=== PATIENT | male | born 1955 | race Caucasian/White ===

== ENCOUNTER → 2021-08-28 11:33 | Outpatient (CLI) | payer MEDICARE, OTHER, SELFPAY ==
[2021-08-28 18:28] LABS: Add Manual Diff / Slide Review NO; Basophils Absolute Auto 0 /uL (0-100); Basophils Percent Auto 0.4 % (0-2); Eosinophils Absolute Auto 100 /uL (0-450); Eosinophils Percent Auto 1.6 % (2-4); Hematocrit 43.3 % (41-53); Hemoglobin 15.5 g/dL (13.5-17.5); Lymphocytes Absolute Auto 1900 /uL (1100-4500); Lymphocytes Percent Auto 31.7 % (25-40); Mean Corpuscular HGB Conc 35.8 % (30-36); Mean Corpuscular Hemoglobin 35.2 PG (26-34); Mean Corpuscular Volume 98.2 fL (80-100); Monocytes Absolute Auto 400 /uL (0-900); Monocytes Percent Auto 5.9 % (3-14); Neutrophils Absolute Auto 3600 /uL (1500-7000); Neutrophils Percent Auto 60.4 % (50-75); Platelet Count 162 X10^3/uL (150-400); Red Cell Distribution Width 12.9 % (11.6-14.8)
[2021-08-28 18:37] LABS: Alanine Aminotransferase 30 IU/L (<50); Albumin 4.5 g/dL (3.5-5.0); Albumin Globulin Ratio 1.7 (1.0-2.8); Alkaline Phosphatase 87 U/L (38-126); Aspartate Aminotransferase 31 IU/L (17-59); BUN Creatinine Ratio 18.1 (6-22); Bilirubin Total 0.7 mg/dL (0.2-1.3); Blood Urea Nitrogen 21 mg/dL (9-20); C-Reactive Protein Quant < 0.5 mg/dL (<1.0); Calcium 9.8 mg/dL (8.4-10.2); Carbon Dioxide 32 mmol/L (22-32); Chloride 104 mmol/L (98-107); Estimated Glomerular Filt Rate > 60.0 mL/min (>60); Globulin 2.7 g/dL (1.7-4.1); Glucose 89 mg/dL (80-110); HEMOLYSIS < 15 (0-50); Sodium 142 mmol/L (137-145); Total Protein 7.2 g/dL (6.3-8.2)
[2021-08-28 18:54] LABS: Erythrocyte Sedimentation Rate 5 MM/HR (0-15)
== END ==
PROVIDERS: Family Provider Family Medicine; PCP Family Medicine; Visit Provider Family Medicine
DX: R07.9 Chest pain, unspecified (principal); M10.9 Gout, unspecified; K21.9 Gastro-esophageal reflux disease without esophagitis
CPT/HCPCS: 80053; 85025; 85651; 86140

== ENCOUNTER → 2021-11-28 11:35 | Outpatient (CLI) | payer MEDICARE, OTHER, SELFPAY ==
[2021-11-28 18:45] LABS: Uric Acid 5.5 mg/dL (3.5-8.5)
== END ==
PROVIDERS: Family Provider Family Medicine; PCP Family Medicine; Visit Provider Physician Assistant
DX: M1A.09X0 Idiopathic chronic gout, multiple sites, without tophus (tophi) (principal)
CPT/HCPCS: 84550

== ENCOUNTER → 2021-12-04 11:00 | Outpatient (CLI) | payer MEDICARE, OTHER, SELFPAY ==
--- NOTE | 2021-12-04 11:03 | DI.MRI.S_ITS ---
PROCEDURE: MR KNEE LT WO CON INDICATIONS: basketball injury, pop/twist Left knee x 2 days ago TECHNIQUE: Noncontrast sagittal PD fast spin echo and T2 fast spin echo with fat saturation, sagittal 3-D FLASH with fat saturation; coronal T1 spin echo and PD fast spin echo with fat saturation, and axial PD fast spin echo with fat saturation through the knee. COMPARISON: None. FINDINGS: Image quality: Excellent. Anterior Cruciate Ligament: There is complete midsubstance tearing of the anterior cruciate ligament. Posterior Cruciate Ligament: Intact. Medial Collateral Ligament: Intact. Lateral Collateral Ligament: Intact. Medial Meniscus: There is mild irregularity of the posterior horn of the medial meniscus that is suspicious for focal complex tearing with a shallow radial component and a suspected horizontal oblique component. Lateral Meniscus: Intact. Medial and Lateral Tendons: The semimembranosus tendon insertions and meniscocapsular junction appear intact. Visualized portions of the pes anserinus tendons appear normal. No abnormal bursal fluid. The long and short heads of the biceps femoris tendon appear intact. The popliteus tendon appears intact. No signs of posterolateral corner injury. Iliotibial band appears normal. Anterior Structures: Mild patella ivelisse. The distal quadriceps tendon is intact. No patellar subluxation. No femoral trochlear dysplasia or ventral trochlear prominence. No edema in the infrapatellar fat pad. Bones: There is mild trabecular bone injury at the far posterior portion of the medial and lateral tibial plateau as well as the weight-bearing portion of the lateral femoral condyle, consistent with a pivot-shift injury mechanism. Medial Femorotibial Cartilage: There is partial-thickness cartilage thinning and surface irregularity involving the central weight-bearing portion of the medial femorotibial compartment. Lateral Femorotibial Cartilage: High-grade or full-thickness cartilage defect is seen at the central to anterior weight-bearing portion of the lateral femoral condyle adjacent to the trabecular bone injury. Patellofemoral Cartilage: High-grade cartilage loss is seen at the medial patellar facet with subchondral cystic changes. Deep cartilage fissuring is seen in the median ridge and lateral facet of the patella. There is moderate to high-grade cartilage loss in the trochlear groove. Soft Tissues: Small joint effusion. Trace medial popliteal cyst. The musculature surrounding the knee is normal in bulk. There is mild thickening of the medial patellar plica. IMPRESSION: 1. Complete midsubstance rupture of the anterior cruciate ligament. 2. Complex tearing of the posterior horn of the medial meniscus with a shallow radial component and probable superimposed horizontal oblique component. 3. Mild impaction trabecular bone injuries at the far posterior portions of the medial and lateral tibial plateau. Mild trabecular bone injury is also seen at the central to anterior weight-bearing portion of the lateral femoral condyle with overlying cartilage irregularity. Findings are consistent with a pivot-shift injury mechanism. 4. 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 5. Mild patella ivelisse. 6. Small joint effusion. Mild thickening of the medial patellar plica. Dictated by: Edward De Santiago M.D. on 12/04/2021 at 14:06 Approved by: Edward De Santiago M.D. on 12/04/2021 at 14:17
== END ==
PROVIDERS: Family Provider Family Medicine; PCP Family Medicine; Referring Provider Family Medicine; Visit Provider Physician Assistant
DX: S83.512A Sprain of anterior cruciate ligament of left knee, initial encounter (principal); S83.232A Complex tear of medial meniscus, current injury, left knee, initial encounter; S89.82XA Other specified injuries of left lower leg, initial encounter; M23.92 Unspecified internal derangement of left knee; M17.12 Unilateral primary osteoarthritis, left knee; M94.262 Chondromalacia, left knee; X50.0XXA Overexertion from strenuous movement or load, initial encounter; Y93.67 Activity, basketball
CPT/HCPCS: 73721

== ENCOUNTER → 2024-05-26 12:01 | Outpatient (CLI) | payer MEDICARE, OTHER, SELFPAY ==
[2024-05-26 19:09] LABS: Erythrocyte Sedimentation Rate 1 MM/HR (0-15)
[2024-05-26 19:14] LABS: C-Reactive Protein Quant < 0.5 mg/dL (<1.0); Rheumatoid Factor < 8.6 IU/mL (<12.0); Uric Acid 6.9 mg/dL (3.5-8.5)
[2024-05-26 19:28] LABS: Vitamin D 25 Hydroxy (D3) 69.5 ng/mL (30.0-100.0)
[2024-05-26 19:42] LABS: Prostate Specific Antigen Scrn 0.269 ng/mL (0.1-4.0)
[2024-05-28 10:10] LABS: CCP Antibodies IgG/IgA 6 units (0-19)
[2024-05-28 18:08] LABS: ANA Screen, IFA Negative (.)
== END ==
PROVIDERS: Family Provider Family Medicine; PCP Family Medicine; Visit Provider Family Medicine
DX: E55.9 Vitamin D deficiency, unspecified (principal); Z12.5 Encounter for screening for malignant neoplasm of prostate; M1A.09X0 Idiopathic chronic gout, multiple sites, without tophus (tophi); M19.049 Primary osteoarthritis, unspecified hand; M25.50 Pain in unspecified joint
CPT/HCPCS: 82306; 84550; 85651; 86038; 86140; 86200; 86430; G0103

== ENCOUNTER → 2024-06-21 11:16 | Outpatient (CLI) | payer MEDICARE, OTHER, SELFPAY ==
[2024-06-21 19:26] LABS: Appearance Urine UA CLEAR; Bilirubin Urine UA NEGATIVE (NEGATIVE); Color Urine UA YELLOW; Glucose Urine UA NEGATIVE (Negative); Ketones Urine UA NEGATIVE (NEGATIVE); Leukocyte Esterase Urine UA NEGATIVE (NEGATIVE); Nitrite Urine UA NEGATIVE (Negative); Occult Blood Urine UA NEGATIVE (Negative); Protein Urine UA NEGATIVE (Negative); Specific Gravity Urine UA 1.015 (1.000-1.035); Urobilinogen Urine UA 0.2 E.U./dL (0.2)
[2024-06-21 19:50] LABS: Bacteria Urine None Seen; Culture Indicated Urine Cult Not Indicated; RBC Urine None Seen (0-5/HPF); Squamous Epithelial Cell Urine None Seen (0-5/HPF); Urine Volume 10mL (spun); WBC Urine None Seen (0-5/HPF)
== END ==
PROVIDERS: Family Provider Family Medicine; PCP Family Medicine; Visit Provider Family Medicine
DX: N18.9 Chronic kidney disease, unspecified (principal)
CPT/HCPCS: 81001

== ENCOUNTER → 2024-11-25 12:05 | Outpatient (CLI) | payer MEDICARE, OTHER, SELFPAY ==
[2024-11-25 18:59] LABS: Alanine Aminotransferase 25 IU/L (<50); Albumin 4.8 g/dL (3.5-5.0); Albumin Globulin Ratio 1.9 (1.0-2.8); Alkaline Phosphatase 90 U/L (38-126); Aspartate Aminotransferase 30 IU/L (17-59); BUN Creatinine Ratio 20.9 (6-22); Bilirubin Total 0.9 mg/dL (0.2-1.3); Blood Urea Nitrogen 24 mg/dL (9-20); C-Reactive Protein Quant < 0.5 mg/dL (<1.0); Calcium 9.7 mg/dL (8.4-10.2); Carbon Dioxide 26 mmol/L (22-32); Chloride 104 mmol/L (98-107); Estimated Glomerular Filt Rate > 60 mL/min (>60); Globulin 2.5 g/dL (1.7-4.1); Glucose 76 mg/dL (70-99); HEMOLYSIS < 15 (0-50); Potassium 4.6 mmol/L (3.4-5.1); Sodium 139 mmol/L (137-145); Total Protein 7.3 g/dL (6.3-8.2)
[2024-11-25 19:01] LABS: Add Manual Diff / Slide Review NO; Basophils Absolute Auto 100 /uL (0-100); Eosinophils Absolute Auto 100 /uL (0-450); Eosinophils Percent Auto 1.2 % (2-4); Hematocrit 44.5 % (41-53); Hemoglobin 15.6 g/dL (13.5-17.5); Lymphocytes Absolute Auto 1600 /uL (1100-4500); Lymphocytes Percent Auto 29.9 % (25-40); Mean Corpuscular HGB Conc 35.1 % (30-36); Mean Corpuscular Hemoglobin 34.7 PG (26-34); Monocytes Absolute Auto 400 /uL (0-900); Neutrophils Absolute Auto 3200 /uL (1500-7000); Neutrophils Percent Auto 60.9 % (50-75); Platelet Count 164 X10^3/uL (150-400); Red Blood Cell Count 4.49 X10^6/uL (4.5-5.9); Red Cell Distribution Width 13.1 % (11.6-14.8); White Blood Cell Count 5.2 X10^3/uL (4.5-11.0)
[2024-11-25 19:47] LABS: Erythrocyte Sedimentation Rate 5 MM/HR (0-15)
== END ==
PROVIDERS: PCP Family Medicine; Visit Provider Family Medicine
DX: M54.9 Dorsalgia, unspecified (principal); R03.0 Elevated blood-pressure reading, without diagnosis of hypertension; G89.29 Other chronic pain
CPT/HCPCS: 80053; 82784; 83883; 84155; 84165; 85025; 85651; 86140; 86334